=== PATIENT | female | born 1995 | race Caucasian/White ===

== ENCOUNTER → 2017-02-22 | Outpatient (CLI) | payer OTHER ==
--- NOTE | 2017-02-23 11:10 | ECHO ---
DATE OF PROCEDURE: February 22, 2017 AGE: 21 GENDER: Female HEIGHT: 70 inches WEIGHT: 125 pounds BODY SURFACE AREA: 1.71 m2 OUTPATIENT REFERRING PHYSICIAN: Dr. Hoang Tyson INDICATION: Marfan syndrome. MEASUREMENTS: 2-D measurements: RV - 3.2 cm LV - 4.6 cm Septum 0.7 cm Posterior wall 0.7 cm Aortic root 2.7 cm LA - 2.8 cm LVEF 65 Doppler measurements: AV - 1.2 meters per second LVOT - 0.98 meters per second LVOT diameter 2.2 cm MVE 120, A 70, E/E ratio 1.7 Early mitral deceleration time 190 milliseconds PV - 1.0 meters per second IVC - 2.2 cm COMMENTS: Normal sinus rhythm/sinus bradycardia without intraventricular conduction disturbance. Normal cardiac chamber sizes and wall thickness and wall motion. Normal-appearing mitral valvular apparatus and leaflet excursion with no posterior systolic buckling. Three equal size aortic cusps of normal thickness and cusp separation. Normal aortic root, ascending aorta, aortic arch, and proximal descending aortic dimensions. No apparent intracardiac mass or pericardial effusion. Color flow Doppler study taken from the parasternal and apical projection showed trace mitral but no aortic and only very mild tricuspid insufficiency. Guided continuous wave Doppler of her aortic valve showed a normal peak systolic velocity against LV outflow tract obstruction. Pulsed and continuous wave Doppler of her LV inflow tract taken from the apical four-chamber projection showed normal diastolic filling velocities against mitral stenosis. Her filling pattern was also normal. Pulsed and continuous wave Doppler of her pulmonary trunk showed a normal peak systolic velocity against RV outflow tract obstruction. Her pulmonary artery acceleration time was also normal against an elevated pulmonary vascular resistance. CONCLUSIONS: No signs of Marfan's disease of the cardiovascular system. Normal appearing echocardiogram/Doppler study.
== END ==
LOC: M CARPUL 08:34
PROVIDERS: ATTEND Family Medicine
DX: Q87.40 Marfan syndrome, unspecified (principal)

== ENCOUNTER → 2020-08-19 | Outpatient (REF) | payer OTHER ==
[2020-08-19 14:01] LABS: HEMATOCRIT 40.1 % (36.0-47.0); MEAN CORPUSCULAR HEMOGLOBIN 28.2 pg (27.0-33.0); MEAN CORPUSCULAR HGB CONC 32.4 g/dl (32.0-36.5); PLATELET COUNT, AUTOMATED 235 10^3/uL (150-450); RED BLOOD COUNT 4.61 10^6/uL (4.00-5.40); WHITE BLOOD COUNT 6.1 10^3/uL (4.0-10.0)
[2020-08-19 15:18] LABS: HEPATITIS C VIRUS ABY INDEX < 0.0 INDEX (<0.8); HIV 1&2 SCREEN CENTAUR NEGATIVE (NEGATIVE)
[2020-08-19 15:48] LABS: CHLAMYDIA DNA AMPLIFICATION NEGATIVE (NEGATIVE); GC DNA AMPLIFICATION NEGATIVE (NEGATIVE)
== END ==
LOC: M PLALAB 09:19
PROVIDERS: ATTEND Specialist
DX: Z34.81 Encounter for supervision of other normal pregnancy, first trimester (principal)

== ENCOUNTER → 2020-11-07 | Outpatient (CLI) | payer OTHER ==
--- NOTE | 2020-11-07 08:37 | REP ---
INDICATION: ANATOMY COMPARISON: None. TECHNIQUE: Transabdominal obstetrical ultrasound with color Doppler evaluation. FINDINGS: Examination demonstrates a single live intrauterine in cephalic presentation. motion is identified by technologist. Placenta is noted anterior and grade 0 without evidence for placenta previa or abruption. Amniotic fluid volume is normal. Cervix measures 3.8 cm in length and appears closed.. Selected gestational age: 20 weeks 0 days with KYA 03/27/2021. Gestational age by current measurements 20 weeks 6 days with KYA 03/21/2021. FHR equals 140 beats per minute. BPD: 5.1 cm at 21 weeks 3 days HC: 18.6 cm at 21 weeks 0 days AC: 15.9 cm at 21 weeks 0 days FL: 3.2 cm at 20 weeks 0 days HL: 3.2 cm at 20 weeks 0 days HC/AC: 1.17 Estimated weight 366 grams (79thpercentile). Anatomical assessment demonstrates normal structures including cranium, choroid plexus, cavum, cerebellum/posterior fossa, facial features, lungs, four-chamber heart/ventricular outflow tracts, diaphragm, stomach, cord insertion/three-vessel cord, kidneys/bladder, spine, and extremities. IMPRESSION: Single live intrauterine in cephalic presentation demonstrating appropriate estimated weight. Anatomical assessment is complete and normal. <Electronically signed by Florentin Curtis > 11/07/20 [id number]
== END ==
LOC: M WHC 07:19
PROVIDERS: ATTEND Advanced Practice Midwife
DX: Z36.3 Encounter for antenatal screening for malformations (principal); Z3A.20 20 weeks gestation of pregnancy

== ENCOUNTER → 2020-11-21 | Outpatient (REF) | payer OTHER | LOC: M PLALAB 11:19 | PROVIDERS: ATTEND Obstetrics & Gynecology | DX: L29.9 Pruritus, unspecified (principal) ==

== ENCOUNTER → 2021-02-27 | Outpatient (REF) | payer OTHER ==
[~2021-02-27] MED LIST: CEPH500C PO; PRENTAB9 PO; TUMS500C PO
== END ==
LOC: M SFHCWAGY 12:46
PROVIDERS: ATTEND Advanced Practice Midwife
DX: Z36.86 Encounter for antenatal screening for cervical length (principal); Z3A.36 36 weeks gestation of pregnancy

== ENCOUNTER 2021-03-02 04:18 | Inpatient (IN) | payer OTHER ==
[~2021-03-02] VITALS: Ht 177.8 cm; Wt 87.2 kg
[2021-03-02] VITALS (19 sets, daily range): BP systolic 122–159; BP diastolic 61–105
[~2021-03-02 04:18] MED LIST changes: -PRENTAB9 PO; -TUMS500C PO
[2021-03-02] MEDS ORDERED: TUMS500C PO (04:43)
[2021-03-02] MEDS ORDERED: PRENTAB9 PO (04:43)
[2021-03-02] MEDS ORDERED: HOME MED LIST COMPLETE! XX SCH (04:45)
[2021-03-02 06:43] LABS: BASO % 0.5 % (0.0-1.0); EOS # 0.1 10^3/uL (0.0-0.5); HEMATOCRIT 33.3 % (36.0-47.0); HEMOGLOBIN 10.6 g/dl (12.0-15.5); LYMPH % 23.1 % (24.0-44.0); MEAN CORPUSCULAR HEMOGLOBIN 26.6 pg (27.0-33.0); MEAN CORPUSCULAR HGB CONC 31.8 g/dl (32.0-36.5); MEAN CORPUSCULAR VOLUME 83.7 fl (80.0-96.0); MONO # 0.8 10^3/uL (0.0-0.8); MONO % 8.5 % (2.0-8.0); NEUTROPHILS # 5.8 10^3/uL (1.5-8.5); NEUTROPHILS % 65.9 % (36.0-66.0); PLATELET COUNT, AUTOMATED 200 10^3/uL (150-450); RED BLOOD COUNT 3.98 10^6/uL (4.00-5.40); WHITE BLOOD COUNT 8.8 10^3/uL (4.0-10.0)
[2021-03-02 07:13] LABS: CREATININE,RANDOM URINE 37.6 MG/DL; TOTAL PROTEIN,RANDOM URINE 36.8 MG/DL (0.0-12.0)
[2021-03-02 07:14] LABS: ALT/SGPT 20 U/L (12-78); BILIRUBIN,TOTAL 0.2 MG/DL (0.2-1.0); CREATININE FOR GFR 0.44 MG/DL (0.55-1.30); GLOMERULAR FILTRATION RATE > 60.0 (>60); LDH LACTATE DEHYDROGENASE 176 U/L (84-246); URIC ACID 3.4 MG/DL (2.6-6.0)
[2021-03-02] MEDS: LR 1,000 ML IV SCH ×2 (07:40→15:49)
[2021-03-02] MEDS: BETAMETHASONE SOLUSPAN 6MG/ML 5ML VIAL (J0702 PER 3MG) IM SCH ×2 (07:41→19:30)
--- NOTE | 2021-03-02 11:12 | HPE ---
HISTORY AND PHYSICAL DATE OF ADMISSION: 03/02/2021 HISTORY OF PRESENT ILLNESS: Rosemarie is a 25-year-old female 1 para 0 with an estimated date of confinement (EDC) of 04/04/2021, estimated gestational age (EGA) 36 and 3/7 weeks gestation who presented to labor and delivery after waking up this morning with a large gush of fluid. She reports wearing approximately four pads coming in all soaking wet. Patient said prior to that, the night before, she had intercourse. She denies any contractions, any bleeding; no headache, no blurred vision; good movement. Her record reviewed; essentially unremarkable; however, during this patient's presentation to labor and delivery, she had a few elevated blood pressures again. She denies ever having that before. Upon further evaluation in labor and delivery, she was found to be grossly ruptured. At this point the decision was made to admit the patient. Her record reviewed. Her blood type is O positive, Rubella immune, hepatitis negative, HIV negative, GC and chlamydia negative. One-hour sugar testing was within normal limits. Her GBS, which was done a few days ago, was negative. PAST MEDICAL HISTORY: Patient denies past surgical history. She had left breast lumpectomy times two. Denies social history. She is a nonsmoker. Denies any alcohol or drug use. REVIEW OF SYSTEMS: Unremarkable. MEDICATION: vitamin. ALLERGIES: No known drug allergies. PHYSICAL EXAMINATION: Normal-appearing female in no acute distress. Abdomen soft, nontender, nondistended. Extremities: No clubbing, cyanosis or edema. Vaginal examination: Gross pooling of fluid noted; clear liquid. Nitrazine and fern positive. Cervical exam: 2 cm, 70%, -2, fetus in a vertex position. Tracing reviewed, category 1 tracing with irregular contractions. ASSESSMENT: 1. Intrauterine at 36 and 3/7 of gestation with gross rupture of membranes in early labor. 2. Elevated blood pressure; cannot rule out preeclampsia. 3. GBS negative. PLAN: Admit to labor and delivery. Routine labs and preeclamptic labs sent. Patient and her partner counseled in great detail. The risks and benefit of steroid for lung maturity at this point also discussed. We did agree that if there are no signs of infection or her symptoms of preeclampsia or worsening preeclampsia, we will consider giving a dose of two of steroids for lung maturity. Risk of potential infection also discussed with the patient and that given the benefit of delivery at this point we will monitor her laboring process. If she does not go into labor on her own, we will consider an induction augmenting her labor. No blood pressure medication has been given at this moment. We will continue to monitor her blood pressure; possible need for blood pressure meds and/or magnesium sulfate also discussed. Pain management discussed with the patient. Patient opts for an epidural. We will continue to monitor. Anticipate delivery. [facility]
[2021-03-02] MEDS ORDERED: OXYTOCIN DRIP 30 UNITS in IV 1 EA IV SCH (19:35)
[2021-03-02] MEDS ORDERED: OXYTOCIN 30 UNITS IN 0.9% NaCl 500ML IV BAG (J2590) As Ordered ONE (19:44)
[2021-03-02] MEDS ORDERED: FENTANYL 2MCG/ML ROPIVACAINE 0.2% IN 0.9% NACL 100ML IVBAG As Ordered ONE (20:37)
[2021-03-02] MEDS ORDERED: NALOXONE INJ 0.4MG/1ML VIAL (J2310 PER 1MG) IV PRN (21:40)
[2021-03-02] MEDS ORDERED: diphenhydrAMINE 50MG/ML VIAL (J1200) IV PRN (21:40)
[2021-03-02] MEDS ORDERED: EPIDURAL COMMENT XX SCH (21:40)
[2021-03-02] MEDS ORDERED: ePHEDrine SULFATE 25 MG/5 ML(5MG/ML) SYRINGE IV PRN (21:40)
[2021-03-02] MEDS ORDERED: ONDANSETRON 4MG/2ML VIAL IV PRN (21:40)
[2021-03-02] MEDS ORDERED: FENTANYL/ROPIVACAINE/NACL BAG 100 ML EPIDURAL SCH (21:40)
[2021-03-02] MEDS ORDERED: REFRIGERATOR IV KEYS XX PRN (21:40)
[2021-03-02] MEDS ORDERED: LACTATED RINGER'S 1000 ML IV PRN (21:40)
[2021-03-02] MEDS ORDERED: EPIDURAL/PCA KEYS XX PRN (21:40)
[2021-03-03 00:34] LABS: CORD GAS ABE V -3.6; CORD GAS HCO3 V 18.7 MEQ/L; CORD GAS O2 SAT V 75.5 %; CORD GAS PCO2 V 28.4 mmHg; CORD GAS PH V 7.436 UNITS; CORD GAS PO2 V 30.7 mmHg; CORD GAS SBC V 20.9 MEQ/L; CORD GAS TCO2 V 19.6 MEQ/L
[2021-03-03 00:35] LABS: CORD GAS ABE A -6.1; CORD GAS HCO3 A 19.2 MEQ/L; CORD GAS O2 SAT A 54.8 %; CORD GAS PCO2 A 38.3 mmHg; CORD GAS PH A 7.319 UNITS; CORD GAS PO2 A 23.1 mmHg; CORD GAS SBC A 18.4 MEQ/L; CORD GAS TCO2 A 20.4 MEQ/L
[2021-03-03] MEDS ORDERED: OXYTOCIN DRIP 30 UNITS in IV 1 EA IV SCH (01:10)
[2021-03-03] MEDS ORDERED: IBUPROFEN 600MG TAB PO PRN (01:10)
[2021-03-03] MEDS ORDERED: MEASLES,MUMPS,RUBELLA VACCINE INJ (MMR-II) (90707) SC SCH (01:10)
[2021-03-03] MEDS ORDERED: RHOGAM 300 MCG (1500 IU) INJ (J2790) IM SCH (01:10)
[2021-03-03] MEDS ORDERED: METHYLERGONOVINE MALEATE 0.2 MG TAB PO PRN (01:10)
[2021-03-03] MEDS ORDERED: ACETAMINOPHEN TAB 650MG DOSE (2X325MG) PO PRN (01:10)
[2021-03-03 03:10] VITALS: BP 122/60
[2021-03-03 05:45] VITALS: BP 128/74
[2021-03-03] MEDS: IBUPROFEN 800 MG TAB PO PRN ×2 (05:51→16:05)
--- NOTE | 2021-03-03 06:32 | DN ---
DELIVERY NOTE DATE OF DELIVERY: 03/03/2021 Rosemarie is a 25-year-old female, 1, para 0 who presented at 36 and 3/7 weeks gestation with spontaneous rupture in early labor. She was also found to have elevated blood pressure with preeclampsia. At this point, the decision was made for admission. DESCRIPTION OF DELIVERY: She progressed on her own to approximately 4-5 cm dilated and had Pitocin augmentation. After two doses of steroid, she progressed to fully dilated, delivered a live male in occiput anterior position with a nuchal cord x1, 8-9, weight 7 lb, 11 oz. Placenta delivered spontaneously intact, three-vessel cord. A small periurethral as well as first degree midline perineal laceration noted which was repaired using 3-0 Chromic. Estimated blood loss: 300 mL. Both mother and baby are in stable condition. [facility]
[2021-03-03] MEDS: PRENATAL VITAMINS CHEWABLE TABLET PO SCH (09:00)
[2021-03-03] MEDS: DOCUSATE SODIUM 100MG CAPSULE PO SCH ×2 (10:09→20:40)
[2021-03-03 19:08] VITALS: BP 131/76
[2021-03-04 06:30] VITALS: BP 136/87
[2021-03-04] MEDS: IBUPROFEN 800 MG TAB PO PRN ×2 (06:43→15:59)
[2021-03-04 07:05] LABS: HEMATOCRIT 28.1 % (36.0-47.0); HEMOGLOBIN 8.9 g/dl (12.0-15.5); MEAN CORPUSCULAR HEMOGLOBIN 26.9 pg (27.0-33.0); MEAN CORPUSCULAR HGB CONC 31.7 g/dl (32.0-36.5); MEAN CORPUSCULAR VOLUME 84.9 fl (80.0-96.0); PLATELET COUNT, AUTOMATED 191 10^3/uL (150-450); RED BLOOD COUNT 3.31 10^6/uL (4.00-5.40)
[2021-03-04 07:32] LABS: ALT/SGPT 18 U/L (12-78); BILIRUBIN,TOTAL 0.1 MG/DL (0.2-1.0); CREATININE FOR GFR 0.49 MG/DL (0.55-1.30); GLOMERULAR FILTRATION RATE > 60.0 (>60); LDH LACTATE DEHYDROGENASE 171 U/L (84-246); URIC ACID 3.6 MG/DL (2.6-6.0)
[2021-03-04] MEDS: PRENATAL VITAMINS CHEWABLE TABLET PO SCH (07:36)
[2021-03-04] MEDS: DOCUSATE SODIUM 100MG CAPSULE PO SCH ×2 (07:36→21:55)
[2021-03-04] MEDS: ACETAMINOPHEN 500 MG TAB PO PRN (21:55)
[2021-03-05] MEDS: IBUPROFEN 800 MG TAB PO PRN ×2 (02:24→13:11)
[2021-03-05 05:15] VITALS: BP 144/75
[2021-03-05] MEDS: PRENATAL VITAMINS CHEWABLE TABLET PO SCH (09:00)
[2021-03-05] MEDS: ACETAMINOPHEN 500 MG TAB PO PRN (09:55)
[2021-03-05] MEDS: DOCUSATE SODIUM 100MG CAPSULE PO SCH (09:55)
== END 2021-03-05 14:00 | disposition home or self-care (01) | DRG 807 ==
LOC: M LDO 04:18 → M LDI 05:52 → M OBS 03-03 03:00
PROVIDERS: ADMIT Obstetrics & Gynecology; ATTEND Obstetrics & Gynecology
PROC: 10E0XZZ Delivery of Products of Conception, External Approach (ICD-10-PCS; principal; 2021-03-03)
PROC: 0HQ9XZZ Repair Perineum Skin, External Approach (ICD-10-PCS; 2021-03-03)
DX: O14.94 Unspecified pre-eclampsia, complicating childbirth (principal); Z37.0 Single live birth; Z3A.36 36 weeks gestation of pregnancy; O69.81X0 Labor and delivery complicated by cord around neck, without compression, not applicable or unspecified; O70.0 First degree perineal laceration during delivery

== ENCOUNTER → 2022-07-20 | Outpatient (REF) | payer OTHER ==
[~2022-07-20] MED LIST changes: +PRENTAB9 PO; +TUMS500C PO
== END ==
LOC: M SFHCWAGY 18:16
PROVIDERS: ATTEND Advanced Practice Midwife
DX: Z12.4 Encounter for screening for malignant neoplasm of cervix (principal)

== ENCOUNTER → 2022-07-20 | Outpatient (CLI) | payer OTHER | LOC: M WHC 15:05 | PROVIDERS: ATTEND Advanced Practice Midwife | DX: R19.04 Left lower quadrant abdominal swelling, mass and lump (principal); Z53.8 Procedure and treatment not carried out for other reasons ==

== ENCOUNTER → 2022-08-13 | Outpatient (CLI) | payer OTHER | LOC: M WHC 14:46 | PROVIDERS: ATTEND Advanced Practice Midwife | DX: R19.04 Left lower quadrant abdominal swelling, mass and lump (principal) ==

== ENCOUNTER → 2024-03-09 | Outpatient (REF) | payer OTHER ==
[2024-03-13 16:02] LABS: HPV APTIMA Not Detected (Not Detected)
== END ==
LOC: M SFHCWAGY 15:11
PROVIDERS: ATTEND Advanced Practice Midwife
DX: Z12.4 Encounter for screening for malignant neoplasm of cervix (principal)
CPT/HCPCS: 87624; G0123

== ENCOUNTER → 2024-11-09 | Outpatient (CLI) | payer BC ==
[2024-11-09 14:46] LABS: PLATELET COUNT, AUTOMATED 235 10^3/uL (150-450)
[2024-11-09 14:52] LABS: LDH LACTATE DEHYDROGENASE 140 U/L (120-246); Trichomonas vaginalis (AMP) NOT DETECTED (NEGATIVE)
[2024-11-09 14:53] LABS: ALT/SGPT 16 U/L (7.0-40); AST/SGOT 17 U/L (<34); CREATININE FOR GFR 0.51 MG/DL (0.55-1.30); GLOMERULAR FILTRATION RATE > 90.0 (>60)
[2024-11-09 15:04] LABS: TOTAL PROTEIN,RANDOM URINE 6.7 MG/DL (0.0-14.0)
[2024-11-09 15:16] LABS: GC DNA AMPLIFICATION NEGATIVE (NEGATIVE)
[2024-11-09 15:19] LABS: HIV 1&2 SCREEN NEGATIVE (NEGATIVE)
[2024-11-09 15:27] LABS: HEPATITIS C VIRUS ABY INDEX < 0.02 INDEX (<0.8)
== END ==
LOC: M PLALAB 11:06
PROVIDERS: ATTEND Obstetrics & Gynecology
DX: Z34.81 Encounter for supervision of other normal pregnancy, first trimester (principal); Z3A.00 Weeks of gestation of pregnancy not specified

== ENCOUNTER → 2024-12-15 | Outpatient (CLI) | payer BC ==
[2024-12-15 11:02] LABS: IRON (FE) 74.0 UG/DL (50-170); PERCENT SATURATION 19.7 % (13.2-45.0)
[2024-12-15 11:05] LABS: FREE T4 1.23 NG/DL (0.89-1.76)
== END ==
LOC: M PLALAB 08:41
PROVIDERS: ATTEND Advanced Practice Midwife
DX: O26.812 Pregnancy related exhaustion and fatigue, second trimester (principal); Z3A.00 Weeks of gestation of pregnancy not specified

== ENCOUNTER → 2025-01-08 | Outpatient (CLI) | payer BC | LOC: M WHC 11:59 | PROVIDERS: ATTEND Advanced Practice Midwife | DX: O09.292 Supervision of pregnancy with other poor reproductive or obstetric history, second trimester (principal) ==

== ENCOUNTER → 2025-01-24 | Outpatient (CLI) | payer BC | LOC: M WHC 13:39 | PROVIDERS: ATTEND Nurse Practitioner Family | DX: Z34.82 Encounter for supervision of other normal pregnancy, second trimester (principal) ==